=== PATIENT | female | born 1995 | race Caucasian/White ===

== ENCOUNTER 2020-11-24 13:45 | Observation (INO) | payer BC ==
[~2020-11-24] VITALS: Ht 154.9 cm; Wt 56.8 kg
[2020-11-24] MEDS ORDERED: PROZAC40 MG PO (13:55)
[2020-11-24 14:07] LABS: BASO % 0.4 % (0.0-2.0); EOS # 0.2 (0.0-0.7); EOS % 2.5 % (0-4.0); GRAN # 4.3 (1.4-6.5); GRAN % 60.7 % (42.2-75.2); HEMATOCRIT 39.5 % (37.0-47.0); HEMOGLOBIN 13.3 g/dl (12.5-16.0); LYMPH # 2.1 (1.2-3.4); MEAN CELL VOLUME 90 fl (80.0-100.0); MEAN CORPUSCULAR HEMOGLOBIN 30 pg (27.0-31.0); MEAN CORPUSCULAR HGB CONC 34 g/dl (33.0-37.0); MEAN PLATELET VOLUME 10.5 fl (7.4-10.4); MONO # 0.5 (0.1-0.6); PLATELET COUNT 249 K/mm3 (130-400); REDCELL DISTRIBUTION WIDTH-CV 11.8 % (11.5-14.5)
[2020-11-24 14:11] LABS: ALBUMIN 4.3 gm/dL (3.5-5.0); BILIRUBIN,TOTAL 0.8 mg/dL (0.0-1.0); CALCIUM 9.4 mg/dL (8.4-10.2); CREATININE, serum 0.66 (0.52-1.25); POTASSIUM 3.2 mmol/L (3.4-5.0); TOTAL PROTEIN 7.2 gm/dL (6.4-8.2)
[2020-11-24 14:42] LABS: TSH w REFLEX 0.682 uIU/mL (0.465-4.680)
[2020-11-24] MEDS ORDERED: DESYREL 50MG50 MG PO (18:10)
--- NOTE | 2020-11-24 21:10 | NUR ---
PT ARRIVED TO ROOM 329 FROM ER BY WC. A&OX4. CALM AND COOPERATIVE. HAS TREMORS WHEN STANDING ONLY. WHEN RESTING IN BED THERE ARE NO TREMORS. PT RELATED THIS IS IMPROVING BY THE HOUR. RELATED HAD 2ND COVID MODERNA AROUND 1230 THIS AFTERNOON. INT NEEDLE RT F/A. TELEMETRY IN PLACE. ASSESSMENT COMPLETED. ORIENTED TO ROOM. PLACED ON FALL RISK.
[2020-11-24 21:17] VITALS: BP 124/76; PULSE 87; TEMP 98.1
[2020-11-24] MEDS ORDERED: FLONASEALLERGY NS (21:39)
--- NOTE | 2020-11-24 22:00 | NUR ---
MARLENY MOREL HERE TO SEE PT.
--- NOTE | 2020-11-24 22:50 | NUR ---
ASSISTED PT TO BR. TREMOROUS GAIT BUT MORE STEADY FROM PRIOR AMB. K+ PROTOCOL NOTED. GAVE K+ EFF ORDERED. NS STARED AT 100CC/HR TO RT F/A. CALL LIGHT IN REACH. BED ALARM SET.
[2020-11-25 02:42] VITALS: BP 132/61; PULSE 83; TEMP 98.1
[2020-11-25 04:40] VITALS: BP 114/61; PULSE 98; TEMP 98.6
--- NOTE | 2020-11-25 06:34 | NUR ---
PT HAS SLEPT MOST OF THE NIGHT. STATUS UNCHANGED.
[2020-11-25 07:40] VITALS: BP 106/65; PULSE 81; TEMP 98.7
[2020-11-25 07:56] LABS: BASO % 0.3 % (0.0-2.0); EOS # 0.1 (0.0-0.7); EOS % 1.4 % (0-4.0); GRAN % 77.5 % (42.2-75.2); HEMOGLOBIN 12.4 g/dl (12.5-16.0); LYMPH # 1.2 (1.2-3.4); LYMPH % 13.2 % (20.0-51.0); MEAN CELL VOLUME 91 fl (80.0-100.0); MEAN CORPUSCULAR HEMOGLOBIN 30 pg (27.0-31.0); MEAN CORPUSCULAR HGB CONC 34 g/dl (33.0-37.0); MONO # 0.7 (0.1-0.6); MONO % 7.3 % (1.7-9.3); PLATELET COUNT 222 K/mm3 (130-400); RED BLOOD COUNT 4.08 M/mm3 (4.10-5.30); REDCELL DISTRIBUTION WIDTH-CV 11.8 % (11.5-14.5)
[2020-11-25 08:06] LABS: ALBUMIN 3.7 gm/dL (3.5-5.0); BILIRUBIN,TOTAL 1.2 mg/dL (0.0-1.0); CALCIUM 8.8 mg/dL (8.4-10.2); CREATININE, serum 0.68 (0.52-1.25); POTASSIUM 4.1 mmol/L (3.4-5.0); TOTAL PROTEIN 6.2 gm/dL (6.4-8.2)
--- NOTE | 2020-11-25 08:40 | NUR ---
Patient sitting up in bed eating breakfast. Alert and oriented x 3. Assessment complete. Spouse at bedside. Patient state she feels better today, not having tremurs to BUE, continues to have tremors to BLE when up out of bed. But patient states tremors much better this morning. Denies further needs at this time.
--- NOTE | 2020-11-25 09:48 | NUR ---
Patient called out asking for tylenol, having mild pain/sorness at injection site. Tylenol given per orders. No further needs at this time. Spouse at bedside.
[2020-11-25 11:25] VITALS: BP 109/44; PULSE 78; TEMP 98.9
[2020-11-25] MEDS ORDERED: TYLENOL 325MG325 MG PO (11:48)
--- NOTE | 2020-11-25 12:20 | NUR ---
Patient doing well, states she would like to go home. Discharge education provided to patient. Educated on safety when ambulating and when to call provider. Patient educated on medication and medication safety. Denies needs at this time. Spouse at bedside. Patient out by wheelchair.
--- NOTE | 2020-11-25 13:35 | NUR ---
SW met with patient to complete intake. Patients Nba [phone] present at intake. Patient states that she lives in [facility] with her who patient also appointed during intake as her DPOA-HC. Document reviewed, completed, signed by patient with nurse witnessing signature on document. Patient states that she does not utilize DME is independent with ADL's. Patient provides that her PCP is Dr. Callahan, pharmacy is [facility] and that she is able to afford her medications. Patient states that she does not utilize home health services and plans to go back to her home upon dc. Patient states that she has no concerns with doing so. SW will continue to follow.
== END 2020-11-25 12:20 | disposition home or self-care (01) ==
LOC: COL.ER 13:45 → JCC 19:49
PROVIDERS: Physician Assistant; Student in an Organized Health Care Education/Training Program; ADMIT Family Medicine
DX: R55 Syncope and collapse (principal); E87.6 Hypokalemia; F41.9 Anxiety disorder, unspecified; E87.1 Hypo-osmolality and hyponatremia; Z79.899 Other long term (current) drug therapy; Z88.8 Allergy status to other drugs, medicaments and biological substances; Z82.49 Family history of ischemic heart disease and other diseases of the circulatory system
CPT/HCPCS: 99223-AI; G0378; J2060; J7030